=== PATIENT | female | born 2000 | race Caucasian/White ===

== ENCOUNTER 2020-07-05 09:04 | Observation (INO) | payer OTHER ==
[~2020-07-05] VITALS: Ht 157.5 cm; Wt 56.7 kg
[2020-07-05 09:56] LABS: HEMOGLOBIN 13.2 gm/dl (12.3-15.3); RED BLOOD COUNT 4.32 M/UL (4.00-5.10)
[2020-07-05 10:21] LABS: BUN/CREATININE RATIO 10 (0-10)
[2020-07-05] MEDS ORDERED: PRENATAL MULTI1 EAC6 PO (13:11)
[2020-07-05] MEDS ORDERED: VITAMIN B-625 MG PO (13:12)
[2020-07-06 01:59] LABS: HEMOGLOBIN 9.7 gm/dl (12.3-15.3); RED BLOOD COUNT 3.18 M/UL (4.00-5.10)
[2020-07-06 02:24] LABS: BUN/CREATININE RATIO 10 (0-10)
== END 2020-07-06 14:40 | disposition home or self-care (01) ==
LOC: ER1 09:04 → CDU 12:35 → OB 16:03
PROVIDERS: Physician Assistant; ADMIT Obstetrics & Gynecology
DX: O26.892 Other specified pregnancy related conditions, second trimester (principal); R10.9 Unspecified abdominal pain; Z20.822 Contact with and (suspected) exposure to COVID-19; Z3A.13 13 weeks gestation of pregnancy; Z87.442 Personal history of urinary calculi; Z98.890 Other specified postprocedural states
CPT/HCPCS: 36415; 76705; 80053; 81001; 83605; 85025; 87040; 87086; 96360; 96361; 96365; 96367; 96374; 96375; 96376; 99285; G0378; J0696; J2270; J2405; J2550; J7030; U0002